=== PATIENT | male | born 1980 | race Two or more races ===

== ENCOUNTER 2020-10-30 20:02 | Emergency (ER) | payer MEDICAID, OTHER ==
[~2020-10-30] VITALS: Ht 175.3 cm; Wt 84.4 kg
[2020-10-30 20:13] VITALS: BP 127/81
[2020-10-30] MEDS ORDERED: TETANUS-DIPTH-ACEL PERTUSSIS 0.5ML SYR Tdap IM ONE (20:45)
== END 2020-10-30 22:26 | disposition left against medical advice (07) ==
LOC: ER 20:04
DX: S61.011A Laceration without foreign body of right thumb without damage to nail, initial encounter (principal); W27.8XXA Contact with other nonpowered hand tool, initial encounter; Y93.89 Activity, other specified; Y92.89 Other specified places as the place of occurrence of the external cause; Y99.8 Other external cause status
CPT/HCPCS: 73130; 90715

== ENCOUNTER 2020-10-31 12:18 | Emergency (ER) | payer MEDICAID ==
[~2020-10-31] VITALS: Ht 175.3 cm; Wt 84.4 kg
[2020-10-31 12:39] VITALS: BP 132/93
[2020-10-31] MEDS ORDERED: LIDOCAINE 1% HCL (LOCAL ANESTH.) INJ 20ML MDV IJ ONE (12:45)
[2020-10-31] MEDS ORDERED: TETANUS-DIPTH-ACEL PERTUSSIS 0.5ML SYR Tdap IM ONE (12:45)
== END 2020-10-31 13:19 | disposition home or self-care (01) ==
LOC: ER 12:18
DX: S61.411A Laceration without foreign body of right hand, initial encounter (principal); X58.XXXA Exposure to other specified factors, initial encounter; Y93.89 Activity, other specified; Y92.89 Other specified places as the place of occurrence of the external cause; Y99.8 Other external cause status
CPT/HCPCS: 12001; 90471; 90715; 99283; J2001